=== PATIENT | male | born 1975 | race Caucasian/White ===

== ENCOUNTER 2019-03-19 20:35 | Emergency (ER) | payer SELFPAY ==
[~2019-03-19] VITALS: Ht 185.4 cm; Wt 100.7 kg
[2019-03-19 21:15] VITALS: BP 144/71
[2019-03-19] MEDS ORDERED: CEPHALEXIN MONOHYDRATE 500 MG CAPSULE PO ONE ×2 (22:30→22:32)
== END 2019-03-19 22:45 | disposition home or self-care (01) ==
LOC: ER 20:39
DX: J34.0 Abscess, furuncle and carbuncle of nose (principal); F17.200 Nicotine dependence, unspecified, uncomplicated